=== PATIENT | female | born 1990 | race Caucasian/White ===

== ENCOUNTER 2016-06-17 10:08 | Emergency (ER) | payer MEDICAID ==
[~2016-06-17] VITALS: Ht 152.4 cm; Wt 62.0 kg
[~2016-06-17 10:08] MED LIST: ACET325T33 PO; CEPH-443 PO; IBUP-1542 PO
[2016-06-17 10:16] VITALS: Ht 152.4 cm; Wt 62.0 kg
[2016-06-17] MEDS ORDERED: IBUPROFEN 600 MG TAB PO ONE (11:00)
[2016-06-17] MEDS ORDERED: NPH10OT RIGHT EAR (11:15)
[2016-06-17] MEDS ORDERED: IBUP-1542 PO (11:15)
--- NOTE | 2016-06-17 11:18 | ERD ---
ER Documentation Chief Complaint Date/Time DATE: 06/17/16 TIME: 11:17 Chief Complaint right ear feeling clogged; decreased hearing HPI This 25-year-old female presents with right ear pain for last few days. Feels that it is clogged. She gives a history of possibly a piece of soap in her right ear while bathing in the bar of soap crumbled. She denies any fevers, cough, congestion, bleeding or discharge. ROS All systems reviewed and are negative except as per history of present illness. Medications Home Meds Active Scripts Ibuprofen* (Motrin*) 600 Mg Tab, 600 MG PO Q6H Y for PAIN, #15 TAB Prov:CURTIS CHENG MD 06/17/16 Neomycin/Polymyxin/Hydrocort* (Cortisporin* Otic) 10 Ml Susp, 4 DROP RIGHT EAR QID for 7 Days, #1 EA Prov:CURTIS CHENG MD 06/17/16 Cephalexin* (Keflex*) 500 Mg Capsule, 500 MG PO QID for 7 Days, CAP Prov:AARON LIU PA-C 10/21/15 Acetaminophen* (Tylenol*) 325 Mg Tablet, 1 TAB PO Q6 Y for PAIN AND OR ELEVATED TEMP, #20 TAB Prov:AARON LIU PA-C 10/21/15 Ibuprofen* (Ibuprofen*) 600 Mg Tab, 600 MG PO Q6, #20 TAB 0 Refills Prov:KEVIN ANG MD 05/15/15 Allergies Allergies: Coded Allergies: No Known Allergy (Unverified , 05/13/15) PMhx/Soc Medical and Surgical Hx: pt denies Medical Hx, pt denies Surgical Hx History of Surgery: No Anesthesia Reaction: No Hx Respiratory Disorders: No Hx Cardiac Disorders: No Hx Psychiatric Problems: No Hx Miscellaneous Medical Probl: No Hx Alcohol Use: No Hx Substance Use: Yes (marijuana --- long time ago) Hx Tobacco Use: No Physical Exam Vitals Vital Signs Date Time Temp Pulse Resp B/P Pulse Ox O2 Delivery O2 Flow Rate FiO2 06/17/16 10:16 98.7 81 18 113/73 97 Physical Exam Const: [] Alert, [id number]. Head: Atraumatic Eyes: Normal Conjunctiva ENT: Normal External Ears, Nose and Mouth. Right TM is occluded by white foreign body temperature and oropharynx is normal. Neck: Full range of motion..~ No meningismus. Resp: Clear to auscultation bilaterally Cardio: Regular rate and rhythm, no murmurs Abd: Soft, non tender, non distended. Normal bowel sounds Skin: No petechiae or rashes Back: No midline or flank tenderness Ext: No cyanosis, or edema Neur: Awake and alert Psych: Normal Mood and Affect Results 24 hrs Current Medications Medications (Trade) Dose Ordered Sig/Betty Route PRN Reason Start Time Stop Time Status Last Admin Dose Admin Ibuprofen (Motrin) 600 mg ONCE ONCE PO 06/17/16 11:00 06/17/16 11:01 DC 06/17/16 10:56 Procedures/MDM Patient is given ibuprofen for pain. Bilateral ear lavage was performed. A small piece of presumably soap was removed from the right ear as well as cerumen. Cerumen was also irrigated from the left ear canal. Patient had normal TMs after observation treatment. Patient will be discharged home with a prescription of ibuprofen and Cortisporin sports and inflammation in the right ear canal after removal of the cerumen and foreign body. She should return for fevers, blood, discharge, new or worsening symptoms with primary doctor this week. There is no evidence of perforation or mastoiditis or additional complications. Departure Diagnosis: Primary Impression: Foreign body of ear, left Encounter type: initial encounter Qualified Code: T16.2XXA - Foreign body of ear, left, initial encounter Additional Impressions: Cerumen impaction Laterality: left Qualified Code: H61.22 - Impacted cerumen of left ear Right ear pain Condition: Stable Patient Instructions: Cerumen Impaction, Home Care, Foreign Body, Ear Canal ( Removed) Additional Instructions: Recheck for new or worsening symptoms with primary care doctor. CURTIS CHENG MD Jun 17, 2016 11:18
== END 2016-06-17 11:32 | disposition home or self-care (01) ==
LOC: FTE 10:08
DX: T16.2XXA Foreign body in left ear, initial encounter (principal); H61.22 Impacted cerumen, left ear; X58.XXXA Exposure to other specified factors, initial encounter; Y92.9 Unspecified place or not applicable
CPT/HCPCS: 69209; Z7502; Z7610

== ENCOUNTER 2018-08-30 17:43 | Emergency (ER) | payer MEDICAID ==
[~2018-08-30] VITALS: Ht 152.4 cm; Wt 63.6 kg
[~2018-08-30 17:43] MED LIST changes: +NPH10OT RIGHT EAR
[2018-08-30 17:50] VITALS: BP 117/76; PULSE 91; RESP 18; Ht 152.4 cm; Wt 63.6 kg
[2018-08-30] MEDS ORDERED: ACETAMINOPHEN 500 MG TAB PO STA (18:33)
[2018-08-30] MEDS ORDERED: CEPH-443 PO (18:39)
[2018-08-30] MEDS ORDERED: PHEN-538 PO (18:39)
--- NOTE | 2018-08-30 18:41 | ERD ---
ER Documentation Chief Complaint Chief Complaint painful urination and frequency of urination x 2 days HPI 28-year-old female presents with dysuria for the last 2 days. She denies fevers, vomiting, abdominal pain. She denies . She denies vaginal discharge or bleeding. ROS All systems reviewed and are negative except as per history of present illness. Medications Home Meds Active Scripts Phenazopyridine Hcl* (Pyridium*) 200 Mg Tab, 200 MG PO TID PRN for URINARY PAIN, #6 TAB Prov:CURTIS CHENG MD 08/30/18 Cephalexin* (Keflex*) 500 Mg Capsule, 500 MG PO QID for 5 Days, CAP Prov:CURTIS CHENG MD 08/30/18 Ibuprofen* (Motrin*) 600 Mg Tab, 600 MG PO Q6H PRN for PAIN, #15 TAB Prov:CURTIS CHENG MD 06/17/16 Neomycin/Polymyxin/Hydrocort* (Cortisporin* Otic) 10 Ml Susp, 4 DROP RIGHT EAR QID for 7 Days, #1 EA Prov:CURTIS CHENG MD 06/17/16 Cephalexin* (Keflex*) 500 Mg Capsule, 500 MG PO QID for 7 Days, CAP Prov:AARON LIU PA-C 10/21/15 Acetaminophen* (Tylenol*) 325 Mg Tablet, 1 TAB PO Q6 PRN for PAIN AND OR ELEVATED TEMP, #20 TAB Prov:AARON LIU PA-C 10/21/15 Ibuprofen* (Ibuprofen*) 600 Mg Tab, 600 MG PO Q6, #20 TAB 0 Refills Prov:KEVIN ANG MD 05/15/15 Allergies Allergies: Coded Allergies: No Known Allergy (Unverified , 05/13/15) PMhx/Soc Medical and Surgical Hx: pt denies Medical Hx, pt denies Surgical Hx History of Surgery: No Anesthesia Reaction: No Hx Respiratory Disorders: No Hx Cardiac Disorders: No Hx Psychiatric Problems: No Hx Miscellaneous Medical Probl: No Hx Alcohol Use: No Hx Substance Use: Yes (marijuana --- long time ago) Hx Tobacco Use: No Smoking Status: Never smoker FmHx Family History: No diabetes, No coronary disease, No other Physical Exam Vitals Vital Signs Date Temp Pulse Resp B/P (MAP) Pulse Ox O2 O2 Flow FiO2 Time Delivery Rate 08/30/18 98.2 91 18 117/76 97 17:50 (90) Physical Exam Const: No acute distress Head: Atraumatic Eyes: Normal Conjunctiva ENT: Normal External Ears, Nose and Mouth. Neck: Full range of motion. No meningismus. Resp: Clear to auscultation bilaterally Cardio: Regular rate and rhythm, no murmurs Abd: Soft, non tender, non distended. Normal bowel sounds Skin: No petechiae or rashes Back: No midline or flank tenderness Ext: No cyanosis, or edema Neur: Awake and alert Psych: Normal Mood and Affect Results 24 hrs Laboratory Tests Test 08/30/18 18:23 08/30/18 18:24 Bedside Urine pH (LAB) 7.0 Bedside Urine Protein (LAB) 2+ Bedside Urine Glucose (UA) Negative Bedside Urine Ketones (LAB) Negative Bedside Urine Blood 1+ Bedside Urine Nitrite (LAB) Negative Bedside Urine Leukocyte Esterase (L 2+ POC Beta HCG, Qualitative NEGATIVE Current Medications Medications Dose Sig/Betty Start Time Status Last (Trade) Ordered Route PRN Stop Time Admin Dose Reason Admin Cephalexin 500 mg ONCE ONCE 08/30/18 UNV (Keflex) PO 19:00 08/30/18 19:01 200 mg ONCE ONCE 08/30/18 UNV Phenazopyridi PO 19:00 ne HCl 08/30/18 19:01 (Pyridium) 500 mg ONCE STAT 08/30/18 UNV Acetaminophen PO 18:33 (Tylenol 08/30/18 18:34 Tab) Procedures/MDM Patient has leukocyte esterase and hemoglobin in her urine. hCG is negative. Patient given Keflex, Pyridium and Tylenol. Patient presents with signs and symptoms of uncomplicated cystitis. She has no current abdominal pain, signs of sepsis, additional concerning signs or symptoms. We will treat with Keflex, fluids, Pyridium, primary care follow-up and return precautions. The patient was stable with no new complaints during the ER course. Clinically, there is no current evidence to suggest meningitis, sepsis, acute abdomen, pneumonia, stroke, acute coronary syndrome, pulmonary embolism, aortic dissection or any other emergent condition appearing to require further evaluation or hospitalization. Patient counseled regarding my diagnostic impression and care plan. Prior to discharge all questions answered. Pt agrees with treatment plan and understands strict return precautions. Pt is instructed to follow up with primary care provider within 24-48 hours. Precautionary instructions provided including instructions to return to the ER if not improving or for any worsening or changing symptoms or concerns. Disclaimer: Inadvertent spelling and grammatical errors are likely due to EHR/dictation software use and do not reflect on the overall quality of patient care. Also, please note that the electronic time recorded on this note does not necessarily reflect the actual time of the patient encounter. Departure Diagnosis: Primary Impression: Dysuria Condition: Stable Patient Instructions: Urinary Tract Infections in Women Referrals: NO PRIMARY,CARE PHYSICIAN (PCP) Additional Instructions: Urine shows signs of infection and we will treat for this. Drink plenty fluids at home. Recheck for vomiting, abdominal pain, new worsening symptoms with primary care doctor. CURTIS CHENG MD Aug 30, 2018 18:41
[2018-08-30] MEDS ORDERED: CEPHALEXIN 500 MG CAP PO ONE (19:00)
[2018-08-30] MEDS ORDERED: PHENAZOPYRIDINE 100 MG TAB PO ONE (19:00)
== END 2018-08-30 18:52 | disposition home or self-care (01) ==
LOC: FTE 17:43
DX: R30.0 Dysuria (principal)
CPT/HCPCS: 81003; 81025; Z7610; 99283